=== PATIENT | female | born 1985 | race Caucasian/White ===

== ENCOUNTER → 2017-08-11 | Emergency (ER) | payer OTHER ==
[~2017-08-11] VITALS: Ht 162.6 cm; Wt 65.3 kg
[~2017-08-11] MED LIST: NO TOMA NADA
== END | disposition home or self-care (01) ==
LOC: ER 14:17
DX: Z34.82 Encounter for supervision of other normal pregnancy, second trimester (principal); R10.84 Generalized abdominal pain; R10.2 Pelvic and perineal pain

== ENCOUNTER 2018-05-23 20:05 | Emergency (ER) | payer OTHER ==
[~2018-05-23] VITALS: Ht 162.6 cm; Wt 68.9 kg
== END 2018-05-23 22:30 | disposition home or self-care (01) ==
LOC: ER 20:05
DX: N61.0 Mastitis without abscess (principal)

== ENCOUNTER 2018-05-27 09:22 | Emergency (ER) | payer OTHER ==
[~2018-05-27] VITALS: Ht 162.6 cm; Wt 68.9 kg
[2018-05-27] MEDS ORDERED: KEFLEX750 MG PO (09:59)
== END 2018-05-27 13:25 | disposition home or self-care (01) ==
LOC: ER 09:22
DX: N61.0 Mastitis without abscess (principal)